=== PATIENT | male | born 1965 | race Caucasian/White ===

== ENCOUNTER 2021-10-18 08:00 | Outpatient (CLI) | payer OTHER ==
--- NOTE | 2021-10-18 12:27 | XRAY Report ---
PROCEDURE: Knee 4 View RT INDICATIONS: RIGHT KNEE PAIN TECHNIQUE: 5 views of the right knee(s) were acquired. COMPARISON: None. FINDINGS: Bones: No acute fractures or dislocations. Minimal tricompartmental degenerative changes of the rig ht knee. No suspicious bony lesions. Soft tissues: Moderate sized joint effusion. No suspicious soft tissue calcifications. IMPRESSION: Right knee without acute fracture or dislocation. Minimal tricompartmental osteoarthrosi s with moderate size joint effusion. If there is continued clinical concern for pathology or occult fracture, consider follow-up imaging w ith repeat radiographs in 10-14 days and possible advanced imaging (CT, MRI, bone scan) if symptoms p ersist. Reviewed by: Kenneth Contreras MD on 10/18/2021 12:26 PM PST Approved by: Kenneth Contreras MD on 10/18/2021 12:26 PM PST Station ID: [id number]
== END 2021-10-18 23:59 | disposition home or self-care (01) ==
LOC: DI.S 08:00
PROVIDERS: ATTEND Physician Assistant
DX: M17.11 Unilateral primary osteoarthritis, right knee (principal)